=== PATIENT | female | born 1975 | race African-American/Black ===

== ENCOUNTER 2018-04-13 14:30 | Emergency (ER) | payer OTHER ==
[~2018-04-13] VITALS: Ht 165.1 cm; Wt 64.9 kg
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
[2018-04-13] MEDS ORDERED: HYDROcodone/APAP 5/325MG 1 TAB TABLET PO ONE (16:15)
[2018-04-13] MEDS ORDERED: MORPHINE SULFATE 4 MG/ML VIAL. IV ONE (16:15)
[2018-04-13] MEDS ORDERED: ORPHENADRINE CITRATE 60 MG/2 ML VIAL. IV ONE (16:15)
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
--- NOTE | 2018-04-13 16:59 | RAD ---
EXAM: Lumbar spine, 3 views; thoracic spine, 3 views. HISTORY: Pain. COMPARISON: None. FINDINGS: 3 views of the thoracic and lumbar spine are obtained. The thoracic and lumbar vertebral bodies are normal in height and the disc spaces are preserved. There is no listhesis. There is chronic appearing decreased vertebral body height at C5 and C6. There is endplate remodeling at these levels. IMPRESSION: 1. No acute lumbar thoracic spine finding. 2. Chronic appearing decreased vertebral body height with endplate remodeling at C5 and C6. Electronically signed by: Jayla Calvillo MD (04/13/2018 4:56 PM) [facility]
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
[2018-04-13] MEDS ORDERED: NAPR-514 PO (17:57)
[2018-04-13] MEDS ORDERED: ORPH100T PO (17:57)
[2018-04-13 18:23] VITALS: BP 141/74
== END 2018-04-13 18:48 | disposition home or self-care (01) ==
LOC: ER 14:30
DX: S16.1XXA Strain of muscle, fascia and tendon at neck level, initial encounter (principal); S29.019A Strain of muscle and tendon of unspecified wall of thorax, initial encounter; S39.012A Strain of muscle, fascia and tendon of lower back, initial encounter; S90.32XA Contusion of left foot, initial encounter; S90.31XA Contusion of right foot, initial encounter; V56.4XXA Person boarding or alighting a pick-up truck or van injured in collision with other nonmotor vehicle, initial encounter; Y93.89 Activity, other specified; Y92.481 Parking lot as the place of occurrence of the external cause; Y99.8 Other external cause status
CPT/HCPCS: 72072; 72100; 72125; 73630; 96374; 96375; 99284; J2270; J2360